=== PATIENT | female | born 1960 | race Two or more races ===

== ENCOUNTER 2022-09-29 10:00 | Outpatient (RCR) | payer MEDICAID, SELFPAY | END 2022-09-29 10:48 | disposition home or self-care (01) | LOC: HO.PT 10:00 | PROVIDERS: PCP Nurse Practitioner Family; Visit Provider Physician Assistant | DX: M54.2 Cervicalgia (principal) | CPT/HCPCS: 97110; 97140; 97162 ==

== ENCOUNTER 2023-03-09 13:01 | Outpatient (REF) | payer MEDICAID, SELFPAY ==
--- NOTE | ~2023-03-09 | US_ITS ---
EXAMINATION: US PELVIS CLINICAL INFORMATION: Postmenopausal bleeding. COMPARISON: None available. TECHNIQUE: Ultrasound of the pelvis is performed using both transabdominal and transvaginal transducers along with Doppler. Transvaginal imaging is performed due to inadequate visualization transabdominally. FINDINGS: The uterus is anteverted and measures 8.7 x 5.5 x 6.3 cm in dimension. There is a focal 1.8 cm hyperechoic lesion in the posterior uterine body suggestive of an intramural fibroid. The endometrium is thickened measuring 1.8 cm. There is a focal 1.0 x 1.3 x 1.6 cm hypoechoic lesion more suggestive of a polyp or submucosal fibroid. The cervix is normal. The ovaries are normal-appearing. The right ovary measures 3 x 1.5 x 2.1 cm. The left ovary is seen transabdominally only and measures 2.2 x 1.7 x 1.6 cm. There is no fluid in the pelvis. US/US pelvic and transvaginal IMPRESSION: Abnormally thickened endometrium measuring 1.8 cm. 1.0 x 1.3 x 1.6 cm hypoechoic endometrial lesion more suggestive of a polyp than submucosal fibroid. This could be better delineated with sonohysterogram or MRI if clinically indicated. Small posterior uterine body fibroid.
== END 2023-03-09 13:02 | disposition home or self-care (01) ==
LOC: HO.US 13:01
PROVIDERS: PCP Nurse Practitioner Family; Visit Provider Advanced Practice Midwife
DX: N95.0 Postmenopausal bleeding (principal)
CPT/HCPCS: 76830; 76856

== ENCOUNTER 2023-04-27 10:57 | Outpatient (AMB) | payer MEDICAID, SELFPAY ==
--- NOTE | 2023-04-27 10:59 | A.OFFVIS_ITS ---
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 Ultrasound was done showed the following: The uterus is anteverted and measures 8.7 x 5.5 x 6.3 cm in dimension. There is a focal 1.8 cm hyperechoic lesion in the posterior uterine body suggestive of an intramural fibroid. The endometrium is thickened measuring 1.8 cm. There is a focal 1.0 x 1.3 x 1.6 cm hypoechoic lesion more suggestive of a polyp or submucosal fibroid. The cervix is normal. The ovaries are normal-appearing. The right ovary measures 3 x 1.5 x 2.1 cm. The left ovary is seen transabdominally only and measures 2.2 x 1.7 x 1.6 cm. There is no fluid in the pelvis. [facility] Medical History HTN (hypertension) Surgical History History of tubal ligation Hx of cholecystectomy Family History Father HTN (hypertension) Mother HTN (hypertension) Brother Drug addict Social History Household Members Other:: Daughter Housing: Apartment Alcohol intake: never Patient Tobacco Use Status: Former Tobacco user Years Smoked: 8 service: No Current occupational status: unemployed Sexual orientation: Straight/Heterosexual Gender identity: Female Female Reproductive History Menstrual Date of last menstrual period: 08/14/20 Menopause type: natural Total pregnancies: 6 Full term: 6 Number of Living Children: 6 Review of Systems Card Reports as per HPI and Reports no additional complaints Resp Reports as per HPI and Reports no additional complaints GI Reports as per HPI and Reports no additional complaints Reports as per HPI Physical Exam Vital Signs: Last Vital Signs BP 124/80 04/27/23 11:01 BMI result Body Mass Index 42.6 Const General: cooperative, healthy appearing and comfortable Chest Chest palpation & inspection: normal inspection of the chest and normal palpation of entire chest wall Breast/axilla inspection: normal inspection of the breasts and normal inspection of the axillae Breast/axilla palpation: normal palpation of the breasts, normal palpation of the axillae and no axillary lymphadenopathy Resp Effort & Inspection: normal respiratory effort Auscultation: clear to auscultation bilaterally Percussion: percussion normal Cardio Palpation: normal PMI Rate: regular rate Rhythm: regular rhythm Heart sounds: no murmurs and no rubs Peripheral pulses: Peripheral pulses 2+ throughout GI Inspection: Yes normal to inspection Palpation (GI): Soft to palpation, nontender, no guarding, not rigid and No hepatosplenomegaly present Percussion: Yes normal to percussion Auscultation: normal bowel sounds Rectal Exam - Female: deferred Assessment & Plan Assessment & Plan (1) Postmenopausal bleeding: Comment: Abnormal thickened endometrium by ultrasound possible polyp versus submucosal myoma Code(s): N95.0 - Postmenopausal bleeding Plan: Discussed with the patient the differential diagnosis of post menopausal bleedin g with normal pelvic exam including but not limited to, endometrial hyperplasia, cancer, polyps and other causes; co testing done. Discussed with the patient the pelvic ultrasound findings, the endometrial stripe thickenss measured by ultrasound was more than 4mm. The negative predictive value, positive predictive value, Sensitivity, specificity of using ultrasound measurement of endometrial stripe to detecting endometrial pathology including hyperplasia , polyp or cancer were discussed with the patient. Recommended to the patient that the next step is an endometrial sampling via hysteroscopy D&C possible polypectomy versus endometrial biopsy to r/o endometrial pathology including hyperplasia or cancer. All the pros and cons risks and benefits of each approach were discussed with the patient, endometrial biopsy being less invasive, office procedure with less sensitivity and inability diagnose a polyp and removal versus hysteroscopy done under anesthesia more invasive more sensitive to endometrial cancer and possibility of diagnosing and endometrial polyp with the possibility of polypectomy. All questions were answered pt verbalized understanding and decided to proceed with hysteroscopy D&C possible polypectomy/myomectomy. Discussed with the patient the procedure , all benefits and risks including but not limited to inability to complete the procedure , bleeding, infection, possible need for blood transfusion with all its risk ( HIV,syphilis, Hepatitis, anaphylaxis shock, others..), injury to bladder, rectum, possible need for laparoscopy/laparotomy or hysterectomy. The patient verbalized understanding and signed the consent. Instructions given the patient to schedule a 2 week postoperative appointment Coding Level of Care Code New Pt Level 3 (05046) Diagnoses Postmenopausal bleeding N95.0
[2023-04-27 11:01] VITALS: BP 124/80; BMI 42.6
== END 2023-04-27 12:22 | disposition home or self-care (01) ==
LOC: HO.HWS 10:57
PROVIDERS: PCP Nurse Practitioner Family; Visit Provider Obstetrics & Gynecology
DX: N95.0 Postmenopausal bleeding (principal)
CPT/HCPCS: 99203

== ENCOUNTER 2023-04-27 10:57 | Outpatient (REF) | payer MEDICAID, SELFPAY ==
[2023-04-30 03:27] LABS: HPV mRNA E6/E7 rflx Not Detected (Not Detected)
== END 2023-04-27 10:58 | disposition home or self-care (01) ==
LOC: HO.LNP 10:57
PROVIDERS: PCP Nurse Practitioner Family; Visit Provider Obstetrics & Gynecology
DX: Z01.419 Encounter for gynecological examination (general) (routine) without abnormal findings (principal); N95.0 Postmenopausal bleeding
CPT/HCPCS: 87624; 88142; 99202

== ENCOUNTER 2023-05-04 07:10 | Day surgery (SDC) | payer MEDICAID, SELFPAY ==
--- NOTE | 2023-05-03 09:04 | HO.ANESPROP2 ---
Documented by User: Sera Gaytan NP 05/03/23 09:05 HPI - Anesthesia Eval Consult details Narrative: 62yo F for D&C Hysteroscopy,poss myomectomy,poss polypectomy PMFSH Active Problems Active Problems: All Active Problems (Updated 04/27/23 @ 11:35 by Castro Sow MD) Postmenopausal bleeding (Acute) Past Medical History Medical History HTN (hypertension) Family History Family History Father HTN (hypertension) Mother HTN (hypertension) Brother Drug addict Surgical History Surgical History (Updated 05/04/23 @ 07:24 by Lily Corea RN) History of tubal ligation Hx of cholecystectomy Hx of colonoscopy Social History Social History Household Members Other:: Daughter Housing: Apartment Alcohol intake: never Patient Tobacco Use Status: Former Tobacco user Quit Date: 10 yrs ago Years Smoked: 8 Use of substances other than those prescribed or required for medical reasons: No Are you DNR?: No Advance Directives: No Advance Directives Information Provided: Yes service: No Current occupational status: unemployed Sexual orientation: Straight/Heterosexual Gender identity: Female Meds Allergies Allergy/AdvReac Type Severity Reaction Status Date / Time No Known Allergies Allergy Verified 05/04/23 07:24 [No Known Allergies*] Home Medications Medication Instructions Recorded Confirmed Last Taken Type albuterol sulfate 90 mcg/actuation 2 puff inhalation Q4H PRN wheezing 04/27/23 05/04/23 Unknown History aerosol inhaler (Ventolin HFA) amlodipine 5 mg tablet 5 mg PO DAILY 04/27/23 05/04/23 Unknown History fluticasone propionate 50 2 spray intranasal DAILY PRN 04/27/23 05/04/23 Unknown History mcg/actuation nasal Allergy Symptoms spray,suspension loratadine 10 mg tablet 10 mg PO DAILY PRN allergies 04/27/23 05/04/23 Unknown History losartan 100 mg tablet 100 mg PO QAM 04/27/23 05/04/23 Unknown History Exam Exam Date and Time: May 03, 2023903 Assessment and Plan Assessment Anesthesia Assessment: Chart Reviewed Documented by User: Yasmani Shukla MD 05/04/23 08:42 PMFSH Past Medical History Medical History HTN (hypertension) Family History Family History Father HTN (hypertension) Mother HTN (hypertension) Brother Drug addict Family history of problems with anesthesia: No Surgical History Surgical History (Updated 05/04/23 @ 07:24 by Lily Corea RN) History of tubal ligation Hx of cholecystectomy Hx of colonoscopy History of Problems with Anesthesia: No Social History Social History Household Members Other:: Daughter Housing: Apartment Alcohol intake: never Patient Tobacco Use Status: Former Tobacco user Quit Date: 10 yrs ago Years Smoked: 8 Use of substances other than those prescribed or required for medical reasons: No Are you DNR?: No Advance Directives: No Advance Directives Information Provided: Yes service: No Current occupational status: unemployed Sexual orientation: Straight/Heterosexual Gender identity: Female Meds Allergies Allergy/AdvReac Type Severity Reaction Status Date / Time No Known Allergies Allergy Verified 05/04/23 07:24 [No Known Allergies*] Home Medications Medication Instructions Recorded Confirmed Last Taken Type albuterol sulfate 90 mcg/actuation 2 puff inhalation Q4H PRN wheezing 04/27/23 05/04/23 Unknown History aerosol inhaler (Ventolin HFA) amlodipine 5 mg tablet 5 mg PO DAILY 04/27/23 05/04/23 Unknown History fluticasone propionate 50 2 spray intranasal DAILY PRN 04/27/23 05/04/23 Unknown History mcg/actuation nasal Allergy Symptoms spray,suspension loratadine 10 mg tablet 10 mg PO DAILY PRN allergies 04/27/23 05/04/23 Unknown History losartan 100 mg tablet 100 mg PO QAM 04/27/23 05/04/23 Unknown History Exam Airway Mallampati Class: II TM Dist: >3cm Neck ROM: Full Heart: ok Lungs: ok Assessment and Plan Assessment Anesthesia Assessment: Anesthesia Plan Discussed Final Anesthetic Review Family History of Problems with Anesthesia: No History of Problems with Anesthesia: No NPO: Yes ASA Class: II Final Preanesthetic Review: No Changes in Pt Med Stat, Meds/Allgs Chart Reviewed, Consent Obtained/Reviewed and Anes Risks/Benef Reviewed Patient Risk: Intermediate Procedure Risk: Low Anesthetic Plan Anesthetic Plan: GA and Agree w/ Assess. and Plan Disposition: Standard PACU
[2023-05-04] VITALS (8 sets, daily range): BP systolic 83–153; BP diastolic 42–71; PULSE 42–71; RESP 14–18; TEMP 36.4–36.8; O2SAT 91–96; BMI 42.7
[2023-05-04] MEDS: Lactated Ringers 1,000 ML 100 ML IVCONT (08:02)
--- NOTE | 2023-05-04 09:20 | MHC.SHP ---
Pre-Procedural Eval Section A Date of Service: 05/04/23 The patient is an INPATIENT: No Changes since office visit: No Cold of Flu in the past 2 weeks, No New Medical Problems, No Changes in Medication and No Patient answered all questions The History & Physical has been completed within 30 days and I have reviewed it.: Yes Section B Chief Complaint: Postmenopausal bleeding Allergies: Allergies Allergy/AdvReac Type Severity Reaction Status Date / Time No Known Allergies Allergy Verified 05/04/23 07:24 [No Known Allergies*] Plan Diagnosis/Plan: Unchanged I have reviewed the history and physical and performed a pertinent physical examination on my patient. No changes have occurred unless specified. Time Spent With Patient Time: Total time managing care of this patient today ____ minutes.
--- NOTE | 2023-05-04 09:53 | PM.OP ---
Brief Operative Note Date of Service: 05/04/23 Pre-op diagnosis: Postmenopausal bleeding and endometrial polyp by ultrasound Post-op diagnosis: same (Two endometrial polyps and ? myoma) Procedure: Hysteroscopy D&C, Polypectomy and myomectomy Surgeon: Castro Sow MD Anesthesia: GLMA Was an Patient Financial Specialist used for this Procedure?: No Estimated blood loss (mL): 0 Pathology: other (Endometrial Scrapping. Polyps. Myoma) Condition: stable Disposition: PACU
--- NOTE | 2023-05-04 09:55 | P.OP_ITS ---
Operative Note Operative Note Date of Service: 05/04/23 Narrative: Preop Diagnosis: Postmenopausal bleeding and Endometrial polyp by US Operation: Diagnostic Hysteroscopy, Dilataion & Curettage , polypectomy and myomectomy Post Op Diagnosis: 2 Endometrial Polyps and myoma QBL: Minimal Anesthesia: GLMA Surgeon: Castro Sow MD Senior Product Integrity Engineer: None Complication: None Pathology: Endometrial Scrapings, Endometrial polyp Procedure: The patient was put in the dorsal lithotomy position, scrubbed, and draped in the usual manner. A sterile speculum was inserted in the patient's vagina. The anterior lip of the cervix was grasped with a single tooth tenaculum. The cervix was dilated up to 5 mm, then the scope was inserted in the patient's uterus. Inspection revealed 2 endometrial polyps and fundal myoma. The Myosure Reach device was used; it was introduced through the operative channel and polypectomy and myomectomy were done with no complications. The scope was then taken out from the uterine cavity, sharp curettings was carried on with minimal to moderate amount of tissues retrieved. At the end of the procedure, all instruments were taken out of the patient uterine and vaginal cavity. The single tooth tenaculum was removed and homeostasis was assured using pressure,. The patient tolerated the procedure well and was transferred to the PACU in a stable condition.
[2023-05-04] MEDS: Acetaminophen 325 MG TABLET 650 MG PO (10:18)
[2023-05-04] MEDS: oxyCODONE HCl Immed Release 5 MG TABLET PO (10:19)
[2023-05-04] MEDS: ondansetron HCL 4 MG/2 ML VIAL IVPUSH (10:28)
== END 2023-05-04 12:09 | disposition home or self-care (01) ==
PROVIDERS: Visit Provider Obstetrics & Gynecology
PROC: 0UDB8ZZ Extraction of Endometrium, Via Natural or Artificial Opening Endoscopic (ICD-10-PCS; CPT 58558; principal; 2023-05-04 09:20)
DX: N95.0 Postmenopausal bleeding (principal); N85.02 Endometrial intraepithelial neoplasia [EIN]; D25.9 Leiomyoma of uterus, unspecified; I10 Essential (primary) hypertension
CPT/HCPCS: 58558; 88305; J1885; J2405; J3010

== ENCOUNTER → 2023-05-04 07:10 | Outpatient (BNV) | payer MEDICAID, SELFPAY | PROVIDERS: Visit Provider Obstetrics & Gynecology | DX: N85.02 Endometrial intraepithelial neoplasia [EIN] (principal); N95.0 Postmenopausal bleeding | CPT/HCPCS: 58561 ==

== ENCOUNTER 2023-05-09 12:21 | Outpatient (AMB) | payer MEDICAID, SELFPAY ==
--- NOTE | 2023-05-09 12:24 | MHC.OFFVIS ---
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 The pathology showed the following: A.? Endometrial polyp, resection: -Fragments of endometrium consistent with polyp with foci of?atypical endometrial hyperplasia/endometrioid intraepithelial neoplasia.? -Polypoid fragments of benign endocervical mucosa.? -Benign smooth muscle fragments with Broad Top degeneration, suggesting submucosal leiomyoma (verses myometrium). B.? Endometrium, curettage: -Markedly fragmented endometrium with focal atypical glands.? -Fragments of benign squamous and endocervical glandular epithelium. [facility] Medical History HTN (hypertension) Surgical History History of tubal ligation Hx of cholecystectomy Hx of colonoscopy Family History Father HTN (hypertension) Mother HTN (hypertension) Brother Drug addict Social History Household Members Other:: Daughter Housing: Apartment Alcohol intake: never Patient Tobacco Use Status: Former Tobacco user Quit Date: 10 yrs ago Years Smoked: 8 service: No Current occupational status: unemployed Sexual orientation: Straight/Heterosexual Gender identity: Female Female Reproductive History Menstrual Date of last pap smear: 04/28/23 (pending) Review of Systems Const All systems reviewed & are unremarkable except as noted in HPI and below Reports as per HPI and Reports no additional complaints GI Reports no additional complaints Reports no additional complaints Assessment & Plan Assessment & Plan (1) EIN (endometrial intraepithelial neoplasia): Code(s): N85.02 - Endometrial intraepithelial neoplasia [EIN] Plan: Discussed with the patient the pathology of endometrial biopsy showing endometrial intraepithelial neoplasia, endometrial hyperplasia with atypia. Discussed with the patient the following: -If untreated the risk of progression of EIN to endometrial carcinoma is 83 percent, -Coexistent endometrial carcinoma may be present in up to 40 percent of patients with EH with atypia -Given the high risk of concurrent, or progression to, endometrial carcinoma, for most postmenopausal patients and premenopausal patients who have completed childbearing, hysterectomy for treatment of EH with atypia is the preferred treatment. -Other options of treatment discussed with the patient include Progestin therapy: Will refer the patient to [facility] medical office technologist Oncology . All questions answered, the patient verbalized understanding. Orders: Referrals Gynecologic Oncology Referral N85.02 - Endometrial intraepithelial neoplasia [EIN] Coding Level of Care Code Est Pt Level 3 (29821) Diagnoses EIN (endometrial intraepithelial neoplasia) N85.02
== END 2023-05-09 12:42 | disposition home or self-care (01) ==
LOC: HO.HWS 12:21
PROVIDERS: Visit Provider Obstetrics & Gynecology
DX: N85.02 Endometrial intraepithelial neoplasia [EIN] (principal)
CPT/HCPCS: 99213

== ENCOUNTER → 2023-05-09 12:21 | Outpatient (BNVA) | payer MEDICAID, SELFPAY | PROVIDERS: Visit Provider Obstetrics & Gynecology | DX: N85.02 Endometrial intraepithelial neoplasia [EIN] (principal) | CPT/HCPCS: 99212 ==

== ENCOUNTER 2023-08-04 15:30 | Outpatient (REF) | payer MEDICAID, SELFPAY ==
--- NOTE | 2023-08-04 15:33 | EMG_ITS ---
Chief complaint: Wakes up in the morning with hand numbness, right worse than left Reason for referral: Evaluate for Carpal Tunnel Syndrome Referred by: Margaux Mccarty CNP Procedure done: Bilateral upper extremities NCS/EMG Precautions and/or limitations: None The limb temperature was monitored continuously and remained between 32-36 degrees C during the performance of the NCS. Nerve Conduction Studies Anti Sensory Summary Table ?Stim Site NR Onset (ms) Norm Onset (ms) Peak (ms) Norm Peak (ms) O-P Amp (?V) Norm O-P Amp Site1 Site2 Delta-0 (ms) Dist (cm) Ferdinand (m/s) Norm Ferdinand (m/s) Left Median Anti Sensory (2nd Digit) Wrist ? 3.6 4.0 <3.6 14.8 >10 Wrist 2nd Digit 3.6 14.0 39 Right Median Anti Sensory (2nd Digit) Wrist NR <3.6 >10 Wrist 2nd Digit 14.0 Right Radial Anti Sensory (Thumb) Forearm ? 1.6 1.9 <3.1 29.2 Forearm Thumb 1.6 0.0 Left Ulnar Anti Sensory (5th Digit) Wrist ? 2.7 3.2 <3.7 25.7 >15.0 Wrist 5th Digit 2.7 14.0 52 Right Ulnar Anti Sensory (5th Digit) Wrist ? 2.3 3.1 <3.7 14.7 >15.0 Wrist 5th Digit 2.3 14.0 61 Motor Summary Table ?Stim Site NR Onset (ms) Norm Onset (ms) O-P Amp (mV) Norm O-P Amp iAmp (mV) Amp (1st) (%) Site1 Site2 Delta-0 (ms) Dist (cm) Ferdinand (m/s) Norm Ferdinand (m/s) Left Median Motor (Abd Poll Brev) Wrist ? 2.7 <3.9 9.3 >4.5 11.3 100.0 Elbow Wrist 5.0 19.5 39 >45 Elbow ? 7.7 7.8 9.2 83.9 Right Median Motor (Abd Poll Brev) Wrist ? 4.7 <3.9 5.9 >4.5 6.5 100.0 Elbow Wrist 3.8 20.0 53 >45 Elbow ? 8.5 4.3 4.9 72.9 Left Ulnar Motor (Abd Dig Minimi) Wrist ? 2.5 <3.0 6.6 >5 6.8 100.0 B Elbow Wrist 3.4 17.5 51 >45 B Elbow ? 5.9 5.8 6.4 87.9 A Elbow B Elbow 1.4 10.0 71 >45 A Elbow ? 7.3 5.7 6.2 86.4 Right Ulnar Motor (Abd Dig Minimi) Wrist ? 2.3 <3.0 6.8 >5 8.4 100.0 B Elbow Wrist 3.5 18.0 51 >45 B Elbow ? 5.8 6.6 8.2 97.1 A Elbow B Elbow 1.2 10.0 83 >45 A Elbow ? 7.0 3.3 4.0 48.5 EMG ?Side Muscle Nerve Root Ins Act Fibs Psw Amp Dur Poly Recrt Int Pat Comment Right 1stDorInt Ulnar C8-T1 Nml Nml Nml Nml Nml 0 Nml Complete Right FlexCarRad Median C6-7 Nml Nml Nml Nml Nml 0 Nml Complete Right Biceps Musculocut C5-6 Nml Nml Nml Nml Nml 0 Nml Complete Right Triceps Radial C6-7-8 Nml Nml Nml Nml Nml 0 Nml Complete Right Deltoid Axillary C5-6 Nml Nml Nml Nml Nml 0 Nml Complete Left 1stDorInt Ulnar C8-T1 Nml Nml Nml Nml Nml 0 Nml Complete Left FlexCarRad Median C6-7 Nml Nml Nml Nml Nml 0 Nml Complete Left Biceps Musculocut C5-6 Nml Nml Nml Nml Nml 0 Nml Complete Left Triceps Radial C6-7-8 Nml Nml Nml Nml Nml 0 Nml Complete Left Deltoid Axillary C5-6 Nml Nml Nml Nml Nml 0 Nml Complete FINDINGS: Right median motor nerve showed prolonged distal latency, normal amplitude and normal conduction velocity. Right ulnar motor nerve showed normal distal latency, drop in amplitude above elbow and normal conduction velocity. Right median sensory nerve showed no response. Right ulnar sensory nerve showed mildly reduced amplitude. Left median motor nerve showed prolonged distal latency, normal amplitude and slow conduction velocity. Left median sensory nerve showed prolonged peak latency. All other nerves tested were within normal. Concentric needle EMG was performed in selected muscles of the bilateral upper extremities. Study did not reveal signs of electric abnormalities as shown in the table below. IMPRESSION: 1. This is an abnormal study. 2. There is electrodiagnostic evidence for bilateral moderate-severe median neuropathy at the wrist, consistent with carpal tunnel syndrome. 3. 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 4. There is no electrodiagnostic evidence for ulnar neuropathy, brachial plexopathy, or cervical radiculopathy. Thank you for your kind referral. Kassandra Campo MD, LUIS CARLOS Board Certified, [place] Board of Physical Medicine and Rehabilitation (ABPMR) Board Certified, [place] Board of Electrodiagnostic Medicine (ABEM) CODIN 40476 x2 MTDD
== END 2023-08-04 15:31 | disposition home or self-care (01) ==
LOC: HO.NEURO 15:30
PROVIDERS: Visit Provider Nurse Practitioner Family
DX: G56.03 Carpal tunnel syndrome, bilateral upper limbs (principal)
CPT/HCPCS: 95886; 95911

== ENCOUNTER → 2023-08-04 15:33 | Outpatient (BNV) | payer MEDICAID, SELFPAY | PROVIDERS: Visit Provider Physical Medicine & Rehabilitation | DX: G56.13 Other lesions of median nerve, bilateral upper limbs (principal); G56.03 Carpal tunnel syndrome, bilateral upper limbs; G56.21 Lesion of ulnar nerve, right upper limb | CPT/HCPCS: 95886; 95911 ==

== ENCOUNTER 2023-08-26 14:15 | Outpatient (REF) | payer MEDICAID, SELFPAY ==
--- NOTE | ~2023-08-26 | MM_ITS ---
EXAMINATION: MM SCREENING DIGITAL BREAST TOMOSYNTHESIS, BILATERAL CLINICAL INFORMATION: Screening. Asymptomatic. COMPARISON: Mammography: This study is compared with prior exams dating back to 2021. TECHNIQUE: Digital breast tomosynthesis is performed in both the craniocaudal and mediolateral oblique views along with computer-aided detection (CAD). Synthesized 2D images are generated from the tomosynthesis. FINDINGS: The breasts are almost entirely fatty (ACR BI-RADS breast composition Category a). There are no significant masses, abnormal calcifications, or other abnormalities. MM/MM tomosynthesis screening BI IMPRESSION: No mammographic evidence of malignancy. ASSESSMENT: BI-RADS BI-RADS 1 - Negative RECOMMENDATION: Routine annual mammography screening. 1 year F/U This examination should not preclude the clinical evaluation of a suspicious palpable abnormality. This patient's information was entered into a reminder system with a target due date for their next mammogram.
== END 2023-08-26 14:16 | disposition home or self-care (01) ==
LOC: HO.MAMMO 14:15
PROVIDERS: PCP Nurse Practitioner Family; Visit Provider Nurse Practitioner Family
DX: Z12.31 Encounter for screening mammogram for malignant neoplasm of breast (principal)
CPT/HCPCS: 77063; 77067

== ENCOUNTER → 2023-08-26 14:15 | Outpatient (BNV) | payer MEDICAID, SELFPAY | PROVIDERS: PCP Nurse Practitioner Family; Visit Provider Radiology Diagnostic Radiology | DX: Z12.31 Encounter for screening mammogram for malignant neoplasm of breast (principal) | CPT/HCPCS: 77063; 77067 ==

== ENCOUNTER 2023-09-11 17:18 | Emergency (ER) | payer MEDICAID, SELFPAY ==
--- NOTE | ~2023-09-11 | XR_ITS ---
EXAMINATION: XR CHEST CLINICAL INFORMATION: Shortness of breath. Cough. COMPARISON: None available. TECHNIQUE: 2 views of the chest were obtained. FINDINGS: No significant abnormality is noted involving the heart, mediastinum, bony thorax or soft tissues. Mild prominent bronchovascular markings likely represent chronic changes. No definite focal airspace opacity to suspect pneumonia. XR/XR chest 2V IMPRESSION: No radiographic evidence of pneumonia or acute pulmonary disease.
[2023-09-11 17:39] VITALS: BP 155/64; PULSE 81; RESP 20; TEMP 36.6; O2SAT 97; BMI 38.6
--- NOTE | 2023-09-11 17:39 | ED.URI ---
HPI - URI/Sore Throat General Chief Complaint: Upper Respiratory Symptoms Stated Complaint: body aches,congested cough Time Seen by Provider: 09/11/23 17:43 Source: RN notes reviewed and old records reviewed History of Present Illness HPI Narrative: 62 year old female with PMHx HTN presenting to the ED c/o subjective fever, chills, congestion, rhinorrhea, right ear itching, dry cough and SOB x yesterday. Admits to chest pain w/coughing. +sick contacts. denies recent travel, LE edema, sore throat, abdominal pain, N/V. MD elicited complaint: fever, cough, rhinorrhea and nasal congestion Related Data Home Medications Medication Instructions Recorded Confirmed albuterol sulfate 90 mcg/actuation 2 puff inhalation Q4H PRN wheezing 04/27/23 05/04/23 aerosol inhaler (Ventolin HFA) amlodipine 5 mg tablet 5 mg PO DAILY 04/27/23 05/04/23 fluticasone propionate 50 2 spray intranasal DAILY PRN 04/27/23 05/04/23 mcg/actuation nasal Allergy Symptoms spray,suspension loratadine 10 mg tablet 10 mg PO DAILY PRN allergies 04/27/23 05/04/23 losartan 100 mg tablet 100 mg PO QAM 04/27/23 05/04/23 Previous Rx's Medication Instructions Recorded benzonatate 100 mg capsule 100 mg PO TID PRN cough #14 caps 09/11/23 fluticasone propionate 50 2 spray intranasal DAILY #16 grams 09/11/23 mcg/actuation nasal spray,suspension (Flonase Allergy Relief) Allergies Allergy/AdvReac Type Severity Reaction Status Date / Time No Known Allergies Allergy Verified 09/11/23 17:39 [No Known Allergies*] Review of Systems Review of Systems: Constitutional: +subj Fever, + Chills ENT/Mouth: + Ear Pain, + Nasal Congestion, No Sinus Pain, No Hoarseness, No sore throat, + Rhinorrhea, No Swallowing Difficulty Cardiovascular: + Chest Pain w/cough, + SOB Respiratory: + Cough, No Sputum, No Wheezing Gastrointestinal: No Nausea, No Vomiting, No Abdominal pain Musculoskeletal: No joint pain, + Myalgias, No Joint Swelling Skin: No Skin Lesions, No rash Neuro: No Weakness Yes all other systems are reviewed and are negative Constitutional: Constitutional: Reports as per [facility] Past Medical History Attestation statement: The following information was validated with the patient. Source: old records reviewed Medical History HTN (hypertension) Surgical History Hx of colonoscopy Hx of cholecystectomy History of tubal ligation Family History Family History Father HTN (hypertension) Mother HTN (hypertension) Brother Drug addict Social History Household Members Other:: Daughter Housing: Apartment Alcohol intake: never Patient Tobacco Use Status: Former Tobacco user Quit Date: 10 yrs ago Years Smoked: 8 Advance Directives: No Advance Directives Information Provided: No service: No Current occupational status: unemployed Sexual orientation: Straight/Heterosexual Gender identity: Female Physical Exam Vital Signs: Vital Signs: Last Vital Signs Temp 97.9 F 09/11/23 17:39 Pulse 85 09/11/23 18:02 Resp 17 09/11/23 18:02 BP 155/64 H 09/11/23 17:39 Pulse Ox 97 09/11/23 17:39 O2 Del Method Room Air 09/11/23 17:39 BMI result Body Mass Index 38.6 Const: General: cooperative, healthy appearing and no acute distress Orientation/consciousness: patient oriented x3 Limitations: no limitations HEENT: Head: Yes normal to inspection and Yes atraumatic Ears: hearing grossly normal bilaterally, external ears normal, TM's normal bilaterally and mastoids normal General nose exam: Normal external nose present Face and sinus: Yes normal facial exam Mouth: Normal oral and palatal mucosa present, no audible dysphonia and no drooling Throat: Yes posterior oropharynx normal, Yes tonsils normal, Yes uvula midline, No peritonsillar mass, No uvula laterally displaced and No uvular edema Eyes: General: appearance normal, both eyes and all related structures EOM: EOMs intact bilaterally Neck: Neck: Yes normal visual inspection and Yes no meningeal signs Resp: Effort & Inspection: normal respiratory effort, no respiratory distress and not tachypneic Auscultation: clear to auscultation bilaterally, no crackles, no rhonchi and no wheezes Cardio: Rate: regular rate Heart sounds: S1 normal heart sound present and S2 normal heart sound present Skin: Rashes: no rashes Wounds: no wounds Neuro: General: patient oriented x3, tone normal and no meningeal signs Cranial nerves: Yes CN's II-XII intact bilaterally Gait exam (Neuro): Normal gait present Extrem: General: Yes normal to inspection Course Course Course Narrative: -COVID, flu, rapid strep negative 1923-- XR chest 2V IMPRESSION: No radiographic evidence of pneumonia or acute pulmonary disease. Results discussed with patient including worrisome signs and symptoms and strict return precautions, and when to return to the emergency department. They verbalized understanding and feel safe for discharge at this time. Medications Administered Discontinued Medications Generic Name Dose Route Start Last Admin Trade Name Freq PRN Reason Stop Dose Admin Albuterol Sulfate 4 puff 09/11/23 17:43 09/11/23 18:01 Albuterol Sulfate 90 Mcg 8 Gm Inhaler INHALE 09/11/23 17:44 4 puff ONCE ONE Administration Medical Decision Making Medical Decision Making MDM Narrative: 62 year old female with PMHx HTN presenting to the ED c/o subjective fever, chills, congestion, rhinorrhea, right ear itching, dry cough and SOB x yesterday. Admits to chest pain w/coughing. On exam VSS, NAD, nontoxic appearing, lungs CTA, oropharynx and TMs WNL. Concern for viral illness vs pneumonia/bronchitis. No evidence of otitis media/externa or strep pharyngitis. No evidence of [employer]ATOR or retropharyngeal abscess Plan: Viral testing, rapid strep from a CXR, albuterol neb inhaler Please refer to course for remaining clinical decision making, interpretation of labs/imaging results, and discussions with consultants and/or family members. Differential Diagnosis Differential Diagnoses: The differential diagnosis associated with the presentation includes As above Lab Data MDM Lab Attestation statement: I reviewed the patient's lab results. Labs: Lab Results 09/11/23 Range/Units 18:05 COVID-19 (JOHAN) Negative (Negative) COVID-19 Clin Com See Note Influenza Type A (EWA) Negative (Negative) Influenza Type B (EWA) Negative (Negative) Influenza A & B Note See Note S. pyogenes GrpA EWA Negative (Negative) Independent Interpretation I performed an independent interpretation of an: Plain X-Ray Radiology Impression Discussion of test interpretation with radiology: I have reviewed the radiologist's reading. External Record Review External record reviewed: Inpatient record, Office record, Outpatient record, Prior outpatient labs, Prior outpatient radiology, Primary care record and Outside ED record Tests considered The following testing was considered but not selected: As above Prescription Management I considered prescription management with: Antibiotic Chronic Conditions Patient?s care impacted by: Hypertension Discharge Plan Discharge Clinical Impression: Upper respiratory infection Patient Disposition: Home, Self-Care Instructions: Upper Respiratory Infection (DC) Additional Instructions: You tested negative for COVID, flu, and strep throat Tessalon Perles for cough, take as needed Flonase is a nasal decongestant Follow-up with your doctor Stay hydrated Rest If symptoms persist or worsen return to the ED Prescriptions: New benzonatate 100 mg capsule 100 mg PO TID PRN (Reason: cough) Qty: 14 0RF fluticasone propionate [Flonase Allergy Relief] 50 mcg/actuation spray,suspension 2 spray intranasal DAILY Qty: 16 0RF Rx Instructions: administer into each nostril No Action loratadine 10 mg tablet 10 mg PO DAILY PRN (Reason: allergies) fluticasone propionate 50 mcg/actuation spray,suspension 2 spray intranasal DAILY PRN (Reason: Allergy Symptoms) losartan 100 mg tablet 100 mg PO QAM albuterol sulfate [Ventolin HFA] 90 mcg/actuation HFA aerosol inhaler 2 puff inhalation Q4H PRN (Reason: wheezing) amlodipine 5 mg tablet 5 mg PO DAILY Referrals: [facility] [Primary Care Provider] -
[2023-09-11] MEDS: Albuterol Sulfate 90 MCG 8 GM INHALER 4 PUFF INHALE (18:01)
--- NOTE | 2023-09-11 18:01 | PC.NURSE ---
RT bedside assessing pt at this time. pt receiving nebulizer treatment.
[2023-09-11 18:02] VITALS: PULSE 85; RESP 17; O2SAT 98
[2023-09-11 18:24] LABS: IDNOW Serial# 6674DD1D; Strep A Nucleic Acid Negative (Negative)
[2023-09-11 18:26] LABS: COVID-19 Test Negative (Negative); IDNOW Serial# 08D9AD1C
[2023-09-11 18:29] LABS: IDNOW Serial# 58CA691E; Influenza A Negative (Negative); Influenza B2 Negative (Negative)
[2023-09-11 19:42] VITALS: O2SAT 97
== END 2023-09-11 19:44 | disposition home or self-care (01) ==
PROVIDERS: Physician Assistant; Emergency Provider Internal Medicine
DX: J06.9 Acute upper respiratory infection, unspecified (principal); M79.10 Myalgia, unspecified site; R05.9 Cough, unspecified; R50.9 Fever, unspecified; J34.89 Other specified disorders of nose and nasal sinuses; R07.89 Other chest pain; R09.81 Nasal congestion; Z11.52 Encounter for screening for COVID-19; Z20.822 Contact with and (suspected) exposure to COVID-19; Z87.891 Personal history of nicotine dependence; Z79.899 Other long term (current) drug therapy
CPT/HCPCS: 71046; 87502; 87635; 87651; 99284; 99285

== ENCOUNTER → 2023-12-07 11:26 | Outpatient (BNVA) | payer MEDICAID, SELFPAY | PROVIDERS: Visit Provider Physical Medicine & Rehabilitation ==

== ENCOUNTER → 2023-12-07 11:26 | Outpatient (BNVA) | payer MEDICAID, SELFPAY | PROVIDERS: Visit Provider Physical Medicine & Rehabilitation ==

== ENCOUNTER 2024-01-11 08:25 | Outpatient (REF) | payer MEDICAID, SELFPAY ==
--- NOTE | ~2024-01-11 | XR_ITS ---
EXAMINATION: XR FOOT, LEFT CLINICAL INFORMATION: Pain with ambulation COMPARISON: None available. TECHNIQUE: AP, lateral, and oblique views of the left foot. FINDINGS: The bones are intact. No fracture. Alignment is anatomic. Joint spaces are maintained. Large Achilles enthesophyte. Tiny posterior plantar calcaneal spur. XR/XR foot LT min 3V IMPRESSION: 1. No acute bony abnormality. 2. Large Achilles enthesophyte.
[2024-01-11 12:06] LABS: Alanine Aminotransferase 29 U/L (0-31); Albumin Level 3.7 g/dL (3.5-5.0); Alkaline Phosphatase 95 U/L (39-117); Anion Gap 10 (12-20); Aspartate Amino Transferase 20 U/L (5-31); Bilirubin Total 0.6 mg/dL (0.0-1.0); Blood Urea Nitrogen 16 mg/dL (9-16); Calcium 9.2 mg/dL (8.4-10.2); Carbon Dioxide 28 mmol/L (22-29); Chloride 106 mmol/L (96-108); Cholesterol 140 mg/dL (<200); Estimated Glomerular Filt Rate > 60; Glucose Random 127 mg/dL (60-115); HDL Cholesterol 37 mg/dL (>40); LDL Cholesterol Calculated 83 mg/dL (<100); Potassium 4.1 mmol/L (3.3-5.1); Sodium 140 mmol/L (135-145); Total Protein 7.5 g/dL (6.5-8.0); Triglycerides 102 mg/dL (<150)
[2024-01-12 07:14] LABS: ~HepC Num1 0.16 S/CO (0.00-0.79); ~Hepatitis C Antibody Nonreactive (Nonreactive)
== END 2024-01-11 08:26 | disposition home or self-care (01) ==
LOC: HO.HHCL 08:25
PROVIDERS: Visit Provider Nurse Practitioner Family
DX: Z00.00 Encounter for general adult medical examination without abnormal findings (principal); R73.03 Prediabetes; M79.672 Pain in left foot
CPT/HCPCS: 36415; 73630; 80053; 80061; 86803

== ENCOUNTER 2024-02-15 08:07 | Outpatient (AMB) | payer MEDICAID, SELFPAY ==
--- NOTE | 2024-02-15 08:30 | A.OFFVIS_ITS ---
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 State she is having numbness and tingling for about 1 year and has worsen in the last 2 months States her right is worse than her left . EMG done. Also states her ring finger is locking every morning. Patient would like to discuss surgery. 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 She complains of numbness in the thumb, index, and middle fingers of her bilateral hands, R>L. Symptoms intermittent, but daily, worse at night. She says her numbness has been present for ~1 year but worsened in the last two months. She says she has some numbness in her right small finger, but this is only occasionally. She says her numbness is worst in the morning when she wakes up She also complains of painful locking of her right ring finger. [facility] Medical History HTN (hypertension) Surgical History Hx of colonoscopy Hx of cholecystectomy History of tubal ligation Family History Father HTN (hypertension) Mother HTN (hypertension) Brother Drug addict Social History (Updated 02/15/24 @ 08:39 by JUAN Butler) Household Members Other:: Daughter Housing: Apartment Alcohol intake: never Patient Tobacco Use Status: Former Tobacco user Quit Date: 10 yrs ago Years Smoked: 8 service: No Current occupational status: unemployed and disabled Current occupation: left hand Sexual orientation: Straight/Heterosexual Gender identity: Female Review of Systems Const All systems reviewed & are unremarkable except as noted in HPI and below Physical Exam Vital Signs: BMI result Body Mass Index 38.6 Const General: cooperative, healthy appearing and no acute distress Orientation/consciousness: patient oriented x3 HEENT Head: Yes normocephalic and Yes atraumatic Eyes EOM: EOMs intact bilaterally Resp Effort & Inspection: normal respiratory effort and able to speak in complete sentences Cardio Jugular venous distension: no JVD Skin General skin exam: turgor normal Rashes: no rashes Neuro General: patient oriented x3 Extrem Other: Evaluation of Bilateral Upper Extremity: The patient is alert, oriented, and in no acute distress Neuro: Median, Ulnar, Radial nerves motor and sensory intact and sensation is normal to the tips of all digits No thenar or intrinsic wasting Good APB muscle belly firing and good finger cross Vascular: Cap refill brisk ROM: She can make a fist and extend all her digits Visible and palpable locking and catching of the right ring finger Skin: No lacerations or abrasions. General: No Ecchymosis. No Erythema or evidence of infection. Nerve Conduction Study: IMPRESSION: 1. This is an abnormal study. 2. There is electrodiagnostic evidence for bilateral moderate-severe median neuropathy at the wrist, consistent with carpal tunnel syndrome. 3. 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 4. There is no electrodiagnostic evidence for ulnar neuropathy, brachial plexopathy, or cervical radiculopathy. Kassandra Campo MD, LUIS CARLOS 08/04/23 Psych Appearance: grossly normal Affect: normal affect Attitude: cooperative Assessment & Plan Assessment & Plan (1) Carpal tunnel syndrome of right wrist: Code(s): G56.01 - Carpal tunnel syndrome, right upper limb Category: Medical (2) Cubital tunnel syndrome on right: Code(s): G56.21 - Lesion of ulnar nerve, right upper limb Category: Medical (3) Carpal tunnel syndrome of left wrist: Code(s): G56.02 - Carpal tunnel syndrome, left upper limb Category: Medical (4) Trigger ring finger of right hand: Code(s): M65.341 - Trigger finger, right ring finger Category: Medical Plan Assessment & Plan: 1. Right carpal tunnel syndrome, moderate-severe Symptoms intermittent, but daily, worse at night 2. Right ring finger trigger finger I educated her about this condition I discussed operative and non-operative treatment options The patient would like to proceed with surgery, beginning with her right side The risks and benefits of operative treatment were discussed with the patient and the patient wishes to proceed with surgery. These risks include, but are not limited to risk of damage to blood vessels, nerves, tendons, infection, recurrence, incomplete relief of preoperative symptoms, persistent pain, possible need for further surgery and the risks associated with regional blocks and anesthesia. The plan is to take the patient to the operating room sometime in the next few weeks for the following procedures: 1. Right carpal tunnel release, under local 2. Right ring finger trigger release, under local All of the preoperative paperwork including the consent was reviewed today. All the patient's questions were answered. The patient understands that they will be contacted by our dental scheduler soon to schedule this procedure She denies Diabetes, blood thinners, asthma, heart, lung, kidney issues 3. Left carpal tunnel syndrome, moderate-severe Symptoms intermittent, but daily, worse at night She will follow up to discuss treatment when her right hand has recovered 4. Right cubital tunnel syndrome Symptoms intermittent & occasional I educated her about this condition If her symptoms increase in frequency or severity she can follow up to discuss surgery Scribed for Richa Landa MD by Stuart Masterson, site medical director, on 02/15/24 at 8:45 AM, EST. Coding Level of Care Code New Pt Level 4 (32604) Diagnoses Carpal tunnel syndrome of right wrist G56.01 Cubital tunnel syndrome on right G56.21 Carpal tunnel syndrome of left wrist G56.02 Trigger ring finger of right hand M65.341
[2024-02-15 08:39] VITALS: BMI 38.6
== END 2024-02-15 08:52 | disposition home or self-care (01) ==
PROVIDERS: Referring Provider Nurse Practitioner Family; Visit Provider Orthopaedic Surgery
DX: G56.03 Carpal tunnel syndrome, bilateral upper limbs (principal); G56.21 Lesion of ulnar nerve, right upper limb; M65.341 Trigger finger, right ring finger
CPT/HCPCS: 99204

== ENCOUNTER → 2024-02-15 08:07 | Outpatient (BNVA) | payer MEDICAID, SELFPAY | PROVIDERS: Visit Provider Orthopaedic Surgery | DX: G56.03 Carpal tunnel syndrome, bilateral upper limbs (principal); G56.21 Lesion of ulnar nerve, right upper limb; M65.341 Trigger finger, right ring finger | CPT/HCPCS: 99202 ==

== ENCOUNTER 2024-02-20 09:54 | Day surgery (SDC) | payer MEDICAID, SELFPAY ==
--- NOTE | 2024-02-20 07:57 | W.PM.OPN ---
Operative Note Operative Note Date of Service: 02/20/24 Narrative: Preop diagnosis: 1. Right Carpal tunnel syndrome 2. Right ring finger trigger finger Postop diagnosis: same Procedure: 1. Right Carpal tunnel release 2. Right ring finger trigger release Surgeon: Richa Landa MD Anesthesia: local block using 1% lidocaine with epinephrine Findings: Thickened transverse carpal ligament. EBL: Less than 5 mL Specimens: None Complications: None Disposition: Brought to recovery room in stable condition Plan: Follow-up for 10-14 days for wound check and suture removal Indications: The patient is 63 years old, with right carpal tunnel syndrome and a right ring finger trigger finger that have been unresponsive to nonoperative management. The risks and benefits of operative treatment including but not limited to risk of damage to blood vessels, nerves, tendons, infection, persistent pain, persistent symptoms, or possible need for additional surgery were discussed with the patient and the patient wishes to proceed with surgery. Procedure: Once consent was obtained a local block was performed using a combination of 1% lidocaine with epinephrine. The patient was then brought back to the operating suite and placed on the operative table in supine position. The right upper extremity was prepped and draped in a standard surgical fashion. Once assured that we had a good block, a 1.5 cm oblique incision was made centered over the A1 sony of the right ring finger . The incision was made through the skin to the subcutaneous tissues using a #15 blade. Careful dissection was made down to the level of the A1 sony using tenotomy scissors, with care being taken to protect the nearby neurovascular structures. A longitudinal incision was made in the A1 sony 1st using a #15 blade, then using tenotomy scissors under direct visualization. The A1 sony was noted to be thickened. Following our A1 sony release, we no longer saw any locking or catching of the digit with flexion and extension. Once assured that we had a good block, a 2.0 cm longitudinal incision was made centered over the carpal tunnel. The incision was made through the skin to the subcutaneous tissues using a #15 blade. Dissection was made down to the level of the transverse carpal ligament with care being taken to protect the palmar cutaneous nerve. Once the transverse carpal ligament was clearly visualized, a longitudinal incision was made in the transverse carpal ligament 1st using a #15 blade, then using tenotomy scissors under direct visualization. Care was taken to look for and protect the motor branch of the median nerve when seen in this area. Once satisfied with our carpal tunnel release the wound was copiously irrigated with normal saline and hemostasis was obtained with a brief period of local pressure. The skin edges were reapproximated with some 5.0 nylon suture material and a sterile dressing was applied. The patient appears to have tolerated the procedure well and with no complications. All digits were well vascularized at the conclusion of the case.
--- NOTE | 2024-02-20 07:58 | MHC.SHP ---
Pre-Procedural Eval Section A - 24 Hr Update-Section A only Date of Service: 02/20/24 The patient is an INPATIENT: No Changes since office visit: No Cold of Flu in the past 2 weeks, No New Medical Problems, No Changes in Medication and No Patient answered all questions The patient has been examined within 24 hours of the surgical procedure. The History & Physical has been completed within 30 days and I have reviewed it.: Yes Section B - Complete if H&P > 30 days Chief Complaint: Carpal tunnel syndrome, right upper limb Allergies: Allergies Allergy/AdvReac Type Severity Reaction Status Date / Time No Known Allergies Allergy Verified 02/15/24 08:38 [No Known Allergies*] Exam Exam Comment: Right carpal tunnel syndrome and a right ring finger trigger finger Plan Diagnosis/Plan: Unchanged I have reviewed the history and physical and performed a pertinent physical examination on my patient. No changes have occurred unless specified. Time Spent With Patient Time: Total time managing care of this patient today ____ minutes.
[2024-02-20 12:37] VITALS: BMI 40.8
[2024-02-20 14:40] VITALS: BP 149/64; PULSE 73; RESP 18; O2SAT 99
== END 2024-02-20 15:45 | disposition home or self-care (01) ==
PROVIDERS: PCP Nurse Practitioner Family; Visit Provider Orthopaedic Surgery
PROC: (CPT 64721; principal; 2024-02-20 12:00)
PROC: (CPT 26055; 2024-02-20 12:00)
DX: G56.01 Carpal tunnel syndrome, right upper limb (principal); M65.341 Trigger finger, right ring finger; R20.0 Anesthesia of skin; R20.2 Paresthesia of skin; I10 Essential (primary) hypertension; Z87.891 Personal history of nicotine dependence; Z56.0 Unemployment, unspecified
CPT/HCPCS: 64721; 26055; J0171

== ENCOUNTER → 2024-02-20 09:54 | Outpatient (BNV) | payer MEDICAID, SELFPAY | PROVIDERS: PCP Nurse Practitioner Family; Visit Provider Orthopaedic Surgery | DX: M65.341 Trigger finger, right ring finger (principal); G56.01 Carpal tunnel syndrome, right upper limb | CPT/HCPCS: 26055; 64721 ==

== ENCOUNTER 2024-03-01 14:14 | Outpatient (AMB) | payer MEDICAID, SELFPAY ==
--- NOTE | 2024-03-01 14:18 | A.OFFVIS_ITS ---
Intake Visit Reasons: [facility] referral for VV w/ pain Intake Note: New patient presents for varicose veins. States she only has one on her right leg. It is not painful but it is big so it concerns her. Accompanied by: Self / Same As Patient Allergies No Known Allergies [No Known Allergies*] Allergy (Verified 03/01/24 14:19) HPI [facility] [place] referral for VV w/ pain: Details: Very pleasant 63-year-old female patient presents for painful varicose veins. Complaints include pain over varicosities, swelling of lower extremities, cramping, fatigue, and heaviness of the lower extremities. 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 It is noted more so in right leg. She does have some la rge varicosities which are painful on her right calf. In addition she most recently underwent right carpal tunnel release. Patient denies any previous venous surgery or injections. Patient denies any history of DVT/ PE. Patient denies any history of phlebitis. Trial of compression includes - [id number] They now present for vascular evaluation regarding their varicose veins. [facility] Medical History HTN (hypertension) Surgical History H/O: hysterectomy Hx of colonoscopy Hx of cholecystectomy History of tubal ligation Family History Father HTN (hypertension) Mother HTN (hypertension) Brother Drug addict Social History Household Members Other:: Daughter Housing: Apartment Alcohol intake: never Comment: counts correct Patient Tobacco Use Status: Former Tobacco user Quit Date: 10 yrs ago Years Smoked: 8 service: No Current occupational status: unemployed and disabled Current occupation: left hand Sexual orientation: Straight/Heterosexual Gender identity: Female Review of Systems Const Reports as per HPI ENT Reports no additional complaints Card Denies chest pain, Denies chest pain at rest and Denies chest pain with activity Resp Denies chest congestion and Denies cough GI Reports no additional complaints Musc Details: pain over varicosities, aching of lower extremities, swelling, cramping, heaviness and tiredness, itching Denies abnormal gait Skin/Breast Reports pruritus and Denies wounds Neuro Reports no additional complaints and Denies abnormal gait Psych Denies no additional complaints Physical Exam Const General: cooperative, healthy appearing and comfortable Orientation/consciousness: oriented to person, oriented to place and oriented to time Neck Carotids: no bruits Chest Chest palpation & inspection: normal inspection of the chest and normal palpation of entire chest wall Resp Effort & Inspection: normal respiratory effort and able to speak in complete sentences Cardio Rate: regular rate Heart sounds: S1 normal heart sound present and S2 normal heart sound present Peripheral pulses: Peripheral pulses 2+ throughout GI Inspection: Yes normal to inspection Skin Other: +2 edema, large rope-like varicosities greater than 4 mm right calf CEAP Classification C4 - skin color changes Ep - Etiology Primary As - superficial veins P - reflux General skin exam: dry skin Neuro General: oriented to person, oriented to place and oriented to time Extrem Right lower extremity: full ROM, normal capillary refill and edema Left lower extremity: full ROM, normal capillary refill and edema Psych Mental Status: mental status grossly normal Assessment & Plan Assessment & Plan (1) Varicose veins of right lower extremity with inflammation: Code(s): I83.11 - Varicose veins of right lower extremity with inflammation Category: Medical Plan: In short, the patient has evidence of venous insufficiency. I have discussed the pathophysiology with the patient. In addition I have provided informational material regarding venous disease to the patient. We have discussed conservative measures including compression, elevation, and exercise. I have also provided a handout regarding appropriate use of compression stockings and where to purchase good compression stockings as well. I have taken the liberty of ordering venous insufficiency testing with the patient. They will follow up with me after testing. The patient had an opportunity to ask questions regarding the treatment plan. All questions were answered. Imaging studies, laboratory studies and physical exam results were discussed and reviewed in detail. No major barriers to understanding were identified. The patient expressed understanding and agreement with the above treatment plan. The patient is aware they should contact our office by phone for worsening of the current condition or the appearance of new symptoms. Thank you for allowing me to participate in the vascular care of this patient. If you have any questions or concerns regarding the treatment for the above condition please do not hesitate to contact me. The office telephone contact is [phone]. This note is constructed using voice recognition software. While every effort has been made to ensure accuracy, aviation electronics technician errors may have been included. Thank you for allowing me to participate in the care of your patient. Yours sincerely, Mukund Willis MD, FACS, R.P.V.I. Orders: Orders US venous duplex LE BI 1 Week I83.11 - Varicose veins of right lower extremity with inflammation Coding Level of Care Code New Pt Level 4 (82008) Diagnoses Varicose veins of right lower extremity with inflammation I83.11
== END 2024-03-01 14:28 | disposition home or self-care (01) ==
PROVIDERS: Referring Provider Nurse Practitioner Family; Visit Provider Surgery Vascular Surgery
DX: I83.11 Varicose veins of right lower extremity with inflammation (principal)
CPT/HCPCS: 99203

== ENCOUNTER → 2024-03-01 14:14 | Outpatient (BNVA) | payer MEDICAID, SELFPAY | PROVIDERS: Visit Provider Surgery Vascular Surgery | DX: I83.11 Varicose veins of right lower extremity with inflammation (principal) | CPT/HCPCS: 99202 ==

== ENCOUNTER 2024-03-06 09:18 | Outpatient (AMB) | payer MEDICAID, SELFPAY ==
[2024-03-06 09:22] VITALS: BMI 40.8
--- NOTE | 2024-03-06 09:22 | MHC.OFFVIS ---
Vital Signs 03/06/24 09:22 Height 5 ft 4 in Weight 238 lb BMI 40.8 Intake Visit Reasons: PO RT CTR/RF trigger 02/20/24 AR Intake Note: Susy 63 yr old female presents today for her PO visit for her right hand CTR & RF trigger 02/20/24 AR. States locking of finger has resolved and only has very little numbness and tingling. Sutures removed and steri strips applied. States she wouldlike to move forward with trigger release for her left middle and ring finger. Allergies No Known Allergies [No Known Allergies*] Allergy (Verified 03/06/24 09:29) HPI HPI PO RT CTR/RF trigger 02/20/24 AR: Details: Susy is a 63 year old left hand dominant woman who returns S/P right carpal tunnel release & ring finger trigger release, DOS: 02/20/24. She says she is doing very well. Her sensation has improved, but not yet normal. She had good improvement in her overnight symptoms. She says her locking has resolved, which she is happy about. Regarding her left hand: She complains of new left ring finger, and perhaps the middle finger, locking & catching, and she would like to discuss surgery. She says her fingers lock primarily in the morning and are not as bad throughout the day. She continues to have numbness in the median nerve distribution, symptoms intermittent, but daily, worse at night PFSH Medical History HTN (hypertension) Surgical History H/O: hysterectomy Hx of colonoscopy Hx of cholecystectomy History of tubal ligation Family History Father HTN (hypertension) Mother HTN (hypertension) Brother Drug addict Social History Household Members Other:: Daughter Housing: Apartment Alcohol intake: never Comment: counts correct Patient Tobacco Use Status: Former Tobacco user Quit Date: 10 yrs ago Years Smoked: 8 service: No Current occupational status: unemployed and disabled Current occupation: left hand Sexual orientation: Straight/Heterosexual Gender identity: Female Review of Systems Const All systems reviewed & are unremarkable except as noted in HPI and below Physical Exam Vital Signs: BMI result Body Mass Index 40.8 Const General: no acute distress and alert Orientation/consciousness: patient oriented x3 Neuro General: patient oriented x3 Extrem Other: The patient was alert oriented and in no acute distress The incisions are healing well with no erythema drainage or evidence of infection. Sutures removed and Steri-Strips applied She can make a fist and extend all her digits No longer has any locking or catching Sensation is improved but not yet normal in the median nerve distribution. Still some numbness in the middle finger in particular. Cap refill is brisk In regards to the left hand: No locking or catching seen today Tender over the ring finger a1 sony Normal sensation to the tips of all digits today in clinic No thenar or intrinsic wasting. Nerve Conduction Study: IMPRESSION: 1. This is an abnormal study. 2. There is electrodiagnostic evidence for bilateral moderate-severe median neuropathy at the wrist, consistent with carpal tunnel syndrome. 3. 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 4. There is no electrodiagnostic evidence for ulnar neuropathy, brachial plexopathy, or cervical radiculopathy. Kassandra Campo MD, LUIS CARLOS 08/04/23 Psych Appearance: grossly normal Affect: normal affect Attitude: cooperative Assessment & Plan Assessment & Plan (1) Carpal tunnel syndrome of right wrist: Code(s): G56.01 - Carpal tunnel syndrome, right upper limb Category: Medical (2) Cubital tunnel syndrome on right: Code(s): G56.21 - Lesion of ulnar nerve, right upper limb Category: Medical (3) Carpal tunnel syndrome of left wrist: Code(s): G56.02 - Carpal tunnel syndrome, left upper limb Category: Medical (4) Trigger ring finger of right hand: Code(s): M65.341 - Trigger finger, right ring finger Category: Medical (5) Stenosing tenosynovitis of finger of left hand: Comment: MF & RF. Code(s): M65.842 - Other synovitis and tenosynovitis, left hand Category: Medical Plan Assessment & Plan: 1. Right carpal tunnel syndrome, S/P release DOS: 02/20/24 Pre-operative symptoms intermittent, but daily, worse at night Now with improved but not yet normal sensation 2. Right ring finger trigger finger, S/P release DOS: 02/20/24 The patient appears to be doing well post-operatively I educated her about the post-operative course I explained the signs and symptoms of infection, if the patient develops any new or worsening erythema, drainage, pain, or warmth they should contact the clinic or attend the ED. I discussed activity modifications, she is to lift nothing heavier than a cellphone for the next two weeks She will perform gentle ROM exercises at home She should avoid any underwater activities for the next 5 days She should gently massage about the incision site to reduce the risk of hypersensitivity She can follow up prn 3. Left carpal tunnel syndrome, moderate-severe Symptoms intermittent, but daily, worse at night 4. Left ring finger pre-trigger tenosynovitis 5. Left middle finger pre-trigger tenosynovitis I educated her about these conditions I discussed operative and non-operative treatment options The patient would like to proceed with surgery The risks and benefits of operative treatment were discussed with the patient and the patient wishes to proceed with surgery. These risks include, but are not limited to risk of damage to blood vessels, nerves, tendons, infection, recurrence, incomplete relief of preoperative symptoms, persistent pain, possible need for further surgery and the risks associated with regional blocks and anesthesia. The plan is to take the patient to the operating room sometime in the next few weeks for the following procedures: 1. Left carpal tunnel release, under local 2. Possible left ring finger trigger release, under local 3. Possible left middle finger trigger release, under local All of the preoperative paperwork including the consent was reviewed today. All the patient's questions were answered. The patient understands that they will be contacted by our activities concierge soon to schedule this procedure She denies Diabetes, blood thinners, asthma, heart, lung, kidney issues 5. Right cubital tunnel syndrome Symptoms intermittent & occasional I educated her about this condition If her symptoms increase in frequency or severity she can follow up to discuss surgery Scribed for Richa Landa MD by Stuart Masterson, medical insurance verifier, on 03/06/24 at 9:40 AM, EST. Coding Level of Care Code Est Pt Level 4 (71792) Diagnoses Carpal tunnel syndrome of right wrist G56.01 Cubital tunnel syndrome on right G56.21 Carpal tunnel syndrome of left wrist G56.02 Trigger ring finger of right hand M65.341 Stenosing tenosynovitis of finger of left hand M65.842
== END 2024-03-06 10:08 | disposition home or self-care (01) ==
PROVIDERS: Visit Provider Orthopaedic Surgery
DX: M65.342 Trigger finger, left ring finger (principal); M65.842 Other synovitis and tenosynovitis, left hand; G56.03 Carpal tunnel syndrome, bilateral upper limbs; G56.21 Lesion of ulnar nerve, right upper limb; M65.341 Trigger finger, right ring finger; M65.332 Trigger finger, left middle finger
CPT/HCPCS: 99214

== ENCOUNTER → 2024-03-06 09:18 | Outpatient (BNVA) | payer MEDICAID, SELFPAY | PROVIDERS: Visit Provider Orthopaedic Surgery | DX: Z47.89 Encounter for other orthopedic aftercare (principal); G56.21 Lesion of ulnar nerve, right upper limb; M65.341 Trigger finger, right ring finger; M65.842 Other synovitis and tenosynovitis, left hand; Z98.890 Other specified postprocedural states | CPT/HCPCS: 99212 ==

== ENCOUNTER 2024-03-15 12:42 | Outpatient (REF) | payer MEDICAID, SELFPAY ==
--- NOTE | ~2024-03-15 | US_ITS ---
EXAMINATION: US LOWER EXTREMITY VENOUS (REFLUX EXAM), BILATERAL CLINICAL INFORMATION: Varicose veins with inflammation COMPARISON: None. TECHNIQUE: Color flow triplex imaging and compression Doppler was performed to evaluate both the deep and the superficial systems bilaterally. To evaluate the superficial system, the examination was performed in the upright position. Color-flow Doppler ultrasound and compression ultrasound were utilized. In addition, maneuvers were utilized to demonstrate reflux. FINDINGS: 1. DEEP VENOUS ULTRASOUND OF THE RIGHT LOWER EXTREMITY: Common Femoral Vein: Compressible, normal respiratory variation and augmented flow. Femoral Vein: Compressible, normal color flow and augmentation. Popliteal Vein: Compressible, normal augmentation. Deep Reflux: There is deep reflux 1124ms in the right popliteal vein. There is no evidence of a Sandra's cyst. 2. SUPERFICIAL ULTRASOUND WITH DOPPLER OF RIGHT LOWER EXTREMITY: GREAT SAPHENOUS VEIN: Saphenofemoral Junction: 1.0 cm; Reflux: 2172 ms Proximal Thigh: 0.4 cm; Reflux: 1764 ms Mid Thigh: 0.7 cm; Reflux: 2492 ms Distal Thigh: 1.3 cm; Reflux: 3084 ms At Knee: 0.7 cm; Reflux: 2992 ms Proximal Calf: 0.5 cm; Reflux: 0 ms Mid Calf: 0.3 cm; Reflux: 2620 ms Distal Calf: 0.2 cm; Reflux: 2712 ms DUPLICATED MEDIAL GREAT SAPHENOUS VEIN: Diameter: None imaged Reflux: NA DUPLICATED LATERAL GREAT SAPHENOUS VEIN: Diameter: 1.0cm Reflux: 1824ms SMALL SAPHENOUS VEIN: Saphenopopliteal Junction: 0.1 cm; Reflux: 0 ms Proximal: 0.3 cm; Reflux: 0 ms Distal: 0.2 cm; Reflux: 1340 ms VEIN OF GIACOMINI: Size: NA Reflux: NA PERFORATORS: Location: Mid thigh and calf Size: 0.2-0.4cm Reflux: NA Location: Mid calf 22cm FH Size: 0.2cm Reflux: 2804ms VARICOSITIES: Location: Numerous calf SSV Size: 0.4-1.1cm Reflux: 0-3136ms 3. DEEP VENOUS ULTRASOUND OF THE LEFT LOWER EXTREMITY: Common Femoral Vein: Compressible, normal respiratory variation and augmented flow. Femoral Vein: Compressible, normal color flow and augmentation. Popliteal Vein: Compressible, normal augmentation. Deep Reflux: There is deep reflux 2808ms in the left common femoral vein. There is no evidence of a Sandra's cyst. 4. SUPERFICIAL ULTRASOUND WITH DOPPLER OF LEFT LOWER EXTREMITY: GREAT SAPHENOUS VEIN: Saphenofemoral Junction: 0.7 cm; Reflux: 0 ms Proximal Thigh: 0.3 cm; Reflux: 0 ms Mid Thigh: 0.4 cm; Reflux: 0 ms Distal Thigh: 0.4 cm; Reflux: 1356 ms At Knee: 0.4 cm; Reflux: 0 ms Proximal Calf: 0.3 cm; Reflux: 0 ms Mid Calf: 0.2 cm; Reflux: 0 ms Distal Calf: 0.3 cm; Reflux: 0 ms DUPLICATED MEDIAL GREAT SAPHENOUS VEIN: Diameter: 0.4cm Reflux: 0ms DUPLICATED LATERAL GREAT SAPHENOUS VEIN: Diameter: None imaged. Reflux: NA SMALL SAPHENOUS VEIN: Saphenopopliteal Junction: 0.2 cm; Reflux: 0 ms Proximal: 0.3 cm; Reflux: 0 ms Distal: 0.2 cm; Reflux: 0 ms VEIN OF GIACOMINI: Size: NA Reflux: NA PERFORATORS: Location: Multiple thigh and calf perforators Size: 0.1-0.4cm Reflux: NA VARICOSITIES: Location: Calf varicose veins Size: 0.3cm Reflux: NA US/US venous insuf bilat IMPRESSION: 1. Right: Severe reflux in the right great saphenous vein. Numerous right lower extremity varicose veins. 2. Left: Severe reflux in the left great saphenous vein in the distal thigh. Multiple thigh and calf perforators. Calf varicose veins. 3. Deep venous reflux in the right popliteal vein and left common femoral vein.
== END 2024-03-15 12:43 | disposition home or self-care (01) ==
LOC: HO.US 12:42
PROVIDERS: Visit Provider Surgery Vascular Surgery
DX: I83.11 Varicose veins of right lower extremity with inflammation (principal)
CPT/HCPCS: 93970

== ENCOUNTER 2024-04-10 14:18 | Outpatient (AMB) | payer MEDICAID, SELFPAY ==
--- NOTE | 2024-04-10 14:19 | A.OFFVIS_ITS ---
Vital Signs 04/10/24 14:21 Height 5 ft 4 in Weight 238 lb BMI 40.8 BP 138/78 Blood Pressure Location Rt brachial Position Sitting Intake Visit Reasons: f/u s/p US 03/15/24 Intake Note: patient presents for follow up. patient had ultrasound one here for resuts Allergies No Known Allergies [No Known Allergies*] Allergy (Verified 04/10/24 14:20) HPI HPI f/u s/p 03/15/24: Details: Very pleasant 63-year-old female presents for follow-up regarding venous insufficiency. She reports that it is right more so than left she has significant swelling of the leg and calf. Occasional discomfort. She reports that compression has provided minimal relief. She now presents for follow-up with venous insufficiency testing. [facility] Medical History HTN (hypertension) Surgical History H/O: hysterectomy Hx of colonoscopy Hx of cholecystectomy History of tubal ligation Family History Father HTN (hypertension) Mother HTN (hypertension) Brother Drug addict Social History Household Members Other:: Daughter Housing: Apartment Alcohol intake: never Comment: counts correct Patient Tobacco Use Status: Former Tobacco user Years Smoked: 8 service: No Current occupational status: unemployed and disabled Current occupation: left hand Sexual orientation: Straight/Heterosexual Gender identity: Female Review of Systems Const Reports as per HPI ENT Reports no additional complaints Card Denies chest pain, Denies chest pain at rest and Denies chest pain with activity Resp Denies chest congestion and Denies cough GI Reports no additional complaints Musc Details: pain over varicosities, aching of lower extremities, swelling, cramping, heaviness and tiredness, itching Denies abnormal gait Skin/Breast Reports pruritus and Denies wounds Neuro Reports no additional complaints and Denies abnormal gait Psych Denies no additional complaints Physical Exam Vital Signs: Last Vital Signs BP 138/78 04/10/24 14:21 BMI result Body Mass Index 40.8 Const General: cooperative, healthy appearing and comfortable Orientation/consciousness: oriented to person, oriented to place and oriented to time Neck Carotids: no bruits Chest Chest palpation & inspection: normal inspection of the chest and normal palpation of entire chest wall Resp Effort & Inspection: normal respiratory effort and able to speak in complete sentences Cardio Rate: regular rate Heart sounds: S1 normal heart sound present and S2 normal heart sound present Peripheral pulses: Peripheral pulses 2+ throughout GI Inspection: Yes normal to inspection Skin Other: +2 edema, large rope-like varicosities greater than 4 mm right calf and thigh CEAP Classification C4 - skin color changes Ep - Etiology Primary As - superficial veins P - reflux General skin exam: dry skin Neuro General: oriented to person, oriented to place and oriented to time Extrem Right lower extremity: full ROM, normal capillary refill and edema Left lower extremity: full ROM, normal capillary refill and edema Psych Mental Status: mental status grossly normal Results Reviewed Results Reviewed: Brief summary of venous insufficiency testing is as follows: right great saphenous vein: Positive right small saphenous vein: negative right accessory vein: none present left great saphenous vein: negative left small saphenous vein: negative left accessory vein: none present Please note there is no evidence of any venous aneurysms or significant tortuosity Assessment & Plan Assessment & Plan (1) Varicose veins of right lower extremity with inflammation: Code(s): I83.11 - Varicose veins of right lower extremity with inflammation Category: Medical Plan: This patient has varicose veins with inflammation. They continue to be a source of discomfort for the patient. The patient has tried conservative treatment with compression, leg elevation and exercise program for over 3 months time. They have been compliant with all treatment. This has provided minimal relief for the patient. I do not anticipate this course of treatment will alter the underlying etiology. The patient has been scheduled for lower extremity venous treatment inclusive of --- right great saphenous vein radiofrequency ablation. Risks, benefits, and complications of this procedure has been discussed in detail with the patient including but not limited to bleeding, infection, and the development of a DVT. The patient has demonstrated a clear understanding and has consented. We will schedule the patient as soon as possible. Thank you for allowing us to participate in this patient's care. If there are any questions or concerns please do not hesitate to contact us. Coding Level of Care Code Est Pt Level 4 (44417) Diagnoses Varicose veins of right lower extremity with inflammation I83.11
[2024-04-10 14:21] VITALS: BP 138/78; BMI 40.8
== END 2024-04-10 14:40 | disposition home or self-care (01) ==
PROVIDERS: Referring Provider Nurse Practitioner Family; Visit Provider Surgery Vascular Surgery
DX: I83.11 Varicose veins of right lower extremity with inflammation (principal)
CPT/HCPCS: 99214

== ENCOUNTER → 2024-04-10 14:18 | Outpatient (BNVA) | payer MEDICAID, SELFPAY | PROVIDERS: Visit Provider Surgery Vascular Surgery | DX: I83.11 Varicose veins of right lower extremity with inflammation (principal) | CPT/HCPCS: 99212 ==

== ENCOUNTER 2024-04-13 08:01 | Outpatient (AMB) | payer MEDICAID, SELFPAY ==
[2024-04-13 08:55] VITALS: BMI 40.8
--- NOTE | 2024-04-13 08:55 | MHC.OFFVIS ---
Vital Signs 04/13/24 08:55 Height 5 ft 4 in Weight 238 lb BMI 40.8 Intake Visit Reasons: Right GSV RFA Accompanied by: Self / Same As Patient Allergies No Known Allergies [No Known Allergies*] Allergy (Verified 04/13/24 08:57) PFSH Medical History HTN (hypertension) Surgical History H/O: hysterectomy Hx of colonoscopy Hx of cholecystectomy History of tubal ligation Family History Father HTN (hypertension) Mother HTN (hypertension) Brother Drug addict Social History Household Members Other:: Daughter Housing: Apartment Alcohol intake: never Comment: counts correct Patient Tobacco Use Status: Former Tobacco user Years Smoked: 8 service: No Current occupational status: unemployed and disabled Current occupation: left hand Sexual orientation: Straight/Heterosexual Gender identity: Female Physical Exam Vital Signs: BMI result Body Mass Index 40.8 Office Procedures Vascular Office Procedure Details Details: Diagnosis: Varicose veins with inflammation of right leg Procedure: Endovenous radiofrequency ablation of the right great saphenous vein(s) of the lower extremity. Anesthesia: Local infiltration 5 cc, Tumescent 400 cc. Estimated Blood Loss: minimal Specimen: Varicose veins The patient was transferred to the procedure suite and the insufficient saphenous vein was mapped by ultrasound and diagrammed on the overlying skin. The depth and diameter of the vein(s) to be treated was documented. The varicose tributary veins and suitable access sites were identified and mapped as well. The patient was then positioned supine on the procedure table. The affected limb was prepped and draped in the usual sterile fashion. The RF catheter was placed on the sterile field, flushed and wiped down, prepared, and connected by a sterile cable. The patient was placed in supine position and local anesthesia was instilled in the skin overlying the access site. A skin incision was made overlying the identified and mapped great saphenous vein entry site. The vein was accessed using ultrasound guidance and the Seldinger technique, a guide wire was introduced through the needle, which was then exchanged over the guide wire for a 6F sheath, which was secured in place. The guide wire was removed and the sheath was flushed. The RF catheter was placed into the vein through the sheath and preferentially, imaging was used to place the catheter tip just inferior to the superficial epigastric vein to preserve normal physiological flow in that vein. Additionally, it was confirmed by ultrasound guidance that the catheter tip was also placed a minimum of 1.5cm distal to the saphenofemoral junction. After the RF catheter position was verified by ultrasound, tumescent anesthesia was infiltrated, under ultrasound guidance, precisely into the perivenous compartment along the entire length of vein from the entry site to the saphenofemoral junction until a halo of fluid was noted around the vein. The patient was then placed in supine position to further exsanguinate the superficial venous system. After RF catheter position was again confirmed with ultrasound imaging, and under direct external compression along the length of the heating element, RF energy was applied. The vein was segmentally ablated by heating a 8 cm segment and then indexing the catheter forward by 7.5 cm until the treatment length is completed. Device temperature was maintained at 120 plus or minus 5 degrees C with an initial power level of 40W dropping to below 20W for each treatment. Total vein length treated 32 cm Total cycles of RF 6. Repeat ultrasound of the saphenous vein was performed, confirming successful treatment. The catheter and sheath were withdrawn and hemostasis established with direct pressure. After assuring hemostasis, the skin incision over the saphenous vein was closed with a bandage and a compression wrap, and/ or graduated compression stocking was applied from the level of the foot to the most proximal level of the thigh. 76469 - Endovenous RF, 1st Vein All charges added?: Procedure code (CPT) selection complete Assessment & Plan Assessment & Plan (1) Varicose veins of right lower extremity with inflammation: Comment: 04/13/2024 - right great saphenous vein radiofrequency ablation Code(s): I83.11 - Varicose veins of right lower extremity with inflammation Category: Medical Plan: See op note Coding Level of Care Code Procedure Only Diagnoses Varicose veins of right lower extremity with inflammation I83.11 CPT Codes Details - Vascular 1: 47318 - Endovenous RF, 1st Vein ([id number])
== END 2024-04-13 11:02 | disposition home or self-care (01) ==
PROVIDERS: Visit Provider Surgery Vascular Surgery
DX: I83.11 Varicose veins of right lower extremity with inflammation (principal)
CPT/HCPCS: 36475

== ENCOUNTER → 2024-04-13 08:01 | Outpatient (BNVA) | payer MEDICAID, SELFPAY | PROVIDERS: Visit Provider Surgery Vascular Surgery | DX: I83.11 Varicose veins of right lower extremity with inflammation (principal) | CPT/HCPCS: 36475 ==

== ENCOUNTER 2024-04-16 14:43 | Outpatient (REF) | payer MEDICAID, SELFPAY ==
--- NOTE | ~2024-04-16 | US_ITS ---
EXAMINATION: TRIPLEX SCANNING OF RIGHT LOWER EXTREMITY; SUPERFICIAL ULTRASOUND WITH DOPPLER OF RIGHT LOWER EXTREMITY CLINICAL INFORMATION: Status post RF ablation of the right great saphenous vein. Originally performed on 04/13/2024. COMPARISON: Bilateral venous reflux study dated 03/15/2024. TECHNIQUE: Color flow triplex imaging and compression Doppler were performed as well as superficial ultrasound with Doppler. FINDINGS: TRIPLEX SCANNING OF RIGHT LOWER EXTREMITY: Respiratory variation, normal compression and augmented flow are noted throughout the lower extremity. The visualized common femoral vein, femoral vein, profunda femoral vein, popliteal vein and the calf veins show no evidence of deep venous thrombosis. SUPERFICIAL ULTRASOUND WITH DOPPLER OF RIGHT LOWER EXTREMITY: The right great saphenous vein is occluded from the access site to just before the sapheno-femoral junction. There is no extension of thrombus into the deep system. There is no evidence of Sandra's cyst. US/US venous duplex LE RT IMPRESSION: 1. Normal triplex scan of the right without evidence of deep venous thrombosis. 2. Excellent appearance status post ablation of the right great saphenous vein.
== END 2024-04-16 14:44 | disposition home or self-care (01) ==
LOC: HO.US 14:43
PROVIDERS: Visit Provider Surgery Vascular Surgery
DX: M79.604 Pain in right leg (principal)
CPT/HCPCS: 93971

== ENCOUNTER 2024-04-18 12:11 | Outpatient (AMB) | payer MEDICAID, SELFPAY ==
--- NOTE | 2024-04-18 12:16 | MHC.OFFVIS ---
Vital Signs 04/18/24 12:19 Height 5 ft 4 in Weight 238 lb BMI 40.8 Handedness Left Intake Visit Reasons: PO LT CTR, RF trigger, MF trigger 04/05/24 AR Intake Note: Susy is a 63 year old left hand dominant female who presents today for a post op appointment s/p left CTR, RF trigger, MF trigger 04/05/24 AR. Patient reports she is doing a bit better, however she is having complaints about having some tightness in her wrist. Allergies No Known Allergies [No Known Allergies*] Allergy (Verified 04/18/24 12:18) HPI HPI PO LT CTR, RF trigger, MF trigger 04/05/24 AR: Details: Susy is a 63 year old left hand dominant woman who returns S/P right carpal tunnel release & ring finger trigger release, DOS: 02/20/24. She says she is doing very well. Her sensation has improved, but is still not yet normal. She had good improvement in her overnight symptoms. She says her locking has resolved, which she is happy about. She complains of tightness in her wrist Regarding her left hand: She complains of left ring finger, and perhaps the middle finger, locking & catching. She says her fingers lock primarily in the morning and are not as bad throughout the day. She continues to have numbness in the median nerve distribution, symptoms intermittent, but daily, worse at night. She was scheduled for surgery last month but this was cancelled as she was sick. [facility] Medical History HTN (hypertension) Surgical History H/O: hysterectomy Hx of colonoscopy Hx of cholecystectomy History of tubal ligation Family History Father HTN (hypertension) Mother HTN (hypertension) Brother Drug addict Social History Household Members Other:: Daughter Housing: Apartment Alcohol intake: never Comment: counts correct Patient Tobacco Use Status: Former Tobacco user Years Smoked: 8 service: No Current occupational status: unemployed and disabled Current occupation: left hand Sexual orientation: Straight/Heterosexual Gender identity: Female Physical Exam Vital Signs: BMI result Body Mass Index 40.8 Const General: no acute distress and alert Orientation/consciousness: patient oriented x3 Neuro General: patient oriented x3 Extrem Other: The patient was alert oriented and in no acute distress The incisions are well-healed. She can make a fist and extend all her digits No longer has any locking or catching Sensation is improved but not yet normal in the right median nerve distribution. Still some numbness in the middle finger in particular. Cap refill is brisk In regards to the left hand: No locking or catching seen today Tender over the ring finger a1 sony Normal sensation to the tips of all digits today in clinic No thenar or intrinsic wasting. Nerve Conduction Study: IMPRESSION: 1. This is an abnormal study. 2. There is electrodiagnostic evidence for bilateral moderate-severe median neuropathy at the wrist, consistent with carpal tunnel syndrome. 3. 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 4. There is no electrodiagnostic evidence for ulnar neuropathy, brachial plexopathy, or cervical radiculopathy. Kassandra Campo MD, [facility] ACRLOS 08/04/23 Psych Appearance: grossly normal Affect: normal affect Attitude: cooperative Assessment & Plan Assessment & Plan (1) Carpal tunnel syndrome of right wrist: Code(s): G56.01 - Carpal tunnel syndrome, right upper limb Category: Medical (2) Cubital tunnel syndrome on right: Code(s): G56.21 - Lesion of ulnar nerve, right upper limb Category: Medical (3) Carpal tunnel syndrome of left wrist: Code(s): G56.02 - Carpal tunnel syndrome, left upper limb Category: Medical (4) Trigger ring finger of right hand: Code(s): M65.341 - Trigger finger, right ring finger Category: Medical (5) Stenosing tenosynovitis of finger of left hand: Comment: MF & RF. Code(s): M65.842 - Other synovitis and tenosynovitis, left hand Category: Medical Plan Assessment & Plan: 1. Right carpal tunnel syndrome, S/P release DOS: 02/20/24 Pre-operatively with dense numbness Now with improved but not yet normal sensation 2. Right ring finger trigger finger, S/P release DOS: 02/20/24 Doing well 3. Left carpal tunnel syndrome, moderate-severe Symptoms intermittent, but daily, worse at night 4. Left ring finger pre-trigger tenosynovitis 5. Left middle finger pre-trigger tenosynovitis I educated her about these conditions I discussed operative and non-operative treatment options The patient would like to proceed with surgery. She was initially scheduled for surgery on 03/21/24 but this was cancelled as she was sick. The risks and benefits of operative treatment were discussed with the patient and the patient wishes to proceed with surgery. These risks include, but are not limited to risk of damage to blood vessels, nerves, tendons, infection, recurrence, incomplete relief of preoperative symptoms, persistent pain, possible need for further surgery and the risks associated with regional blocks and anesthesia. The plan is to take the patient to the operating room sometime in the next few monthsfor the following procedures: 1. Left carpal tunnel release, under local 2. Possible left ring finger trigger release, under local 3. Possible left middle finger trigger release, under local All of the preoperative paperwork including the consent was reviewed today. All the patient's questions were answered. The patient understands that they will be contacted by our survival equipment repairer soon to schedule this procedure. She would like to have this done sometime in June She denies Diabetes, blood thinners, asthma, heart, lung, kidney issues 5. Right cubital tunnel syndrome Symptoms intermittent & occasional I educated her about this condition If her symptoms increase in frequency or severity she can follow up to discuss surgery Scribed for Richa Landa MD by Stuart Masterson, director biomedical engineering, on 04/18/24 at 12:20 PM, EST. Coding Level of Care Code Est Pt Level 4 (72347) Diagnoses Carpal tunnel syndrome of right wrist G56.01 Cubital tunnel syndrome on right G56.21 Carpal tunnel syndrome of left wrist G56.02 Trigger ring finger of right hand M65.341 Stenosing tenosynovitis of finger of left hand M65.842
[2024-04-18 12:19] VITALS: BMI 40.8
== END 2024-04-18 12:29 | disposition home or self-care (01) ==
PROVIDERS: Visit Provider Orthopaedic Surgery
DX: G56.03 Carpal tunnel syndrome, bilateral upper limbs (principal); G56.21 Lesion of ulnar nerve, right upper limb; M65.341 Trigger finger, right ring finger; M65.842 Other synovitis and tenosynovitis, left hand
CPT/HCPCS: 99214

== ENCOUNTER → 2024-04-18 12:11 | Outpatient (BNVA) | payer MEDICAID, SELFPAY | PROVIDERS: Visit Provider Orthopaedic Surgery | DX: G56.02 Carpal tunnel syndrome, left upper limb (principal); M65.341 Trigger finger, right ring finger; M65.842 Other synovitis and tenosynovitis, left hand; Z86.69 Personal history of other diseases of the nervous system and sense organs | CPT/HCPCS: 99212 ==

== ENCOUNTER 2024-05-01 14:06 | Outpatient (AMB) | payer MEDICAID, SELFPAY ==
--- NOTE | 2024-05-01 14:12 | MHC.OFFVIS ---
Intake Visit Reasons: 2w follow up s/p Right GSV RFA Intake Note: Patient presents for 2 week follow up for right GSV RFA. She states she is experiencing soreness in right thigh. Allergies No Known Allergies [No Known Allergies*] Allergy (Verified 05/01/24 14:13) HPI HPI 2w follow up s/p Right GSV RFA: Details: Very pleasant 63-year-old female presents for follow-up status post right great saphenous vein radiofrequency ablation. She reports no postprocedure difficulties. Overall swelling and discomfort have significantly improved. Of note postprocedure ultrasound was negative for DVT. PFSH Medical History HTN (hypertension) Surgical History H/O: hysterectomy Hx of colonoscopy Hx of cholecystectomy History of tubal ligation Family History Father HTN (hypertension) Mother HTN (hypertension) Brother Drug addict Social History Household Members Other:: Daughter Housing: Apartment Alcohol intake: never Comment: counts correct Patient Tobacco Use Status: Former Tobacco user Years Smoked: 8 service: No Current occupational status: unemployed and disabled Current occupation: left hand Sexual orientation: Straight/Heterosexual Gender identity: Female Review of Systems Const All systems reviewed & are unremarkable except as noted in HPI and below Reports no additional complaints ENT Reports Normal hearing present Card Denies chest pain, Denies chest pain at rest, Denies chest pain with activity and Denies pedal edema Resp Denies cough GI Denies abdominal pain Musc Denies abnormal gait, Denies muscle cramps and Denies radiating pain into limb Skin/Breast Denies skin ulcer and Denies wounds Neuro Reports Normal hearing present and Denies abnormal gait Psych Reports no additional complaints Physical Exam Const General: cooperative, healthy appearing and comfortable Orientation/consciousness: oriented to person, oriented to place and oriented to time HEENT Head: Yes normal to inspection Neck Neck: Yes normal visual inspection Carotids: no bruits Chest Chest palpation & inspection: normal inspection of the chest Resp Effort & Inspection: normal respiratory effort and able to speak in complete sentences Auscultation: clear to auscultation bilaterally, no crackles, no rales, no rhonchi and no wheezes Cardio Rate: regular rate Rhythm: regular rhythm Heart sounds: S1 normal heart sound present and S2 normal heart sound present Bruits: no carotid bruits Peripheral pulses: Peripheral pulses 2+ throughout GI Inspection: Yes normal to inspection Skin Wounds: no wounds Hair: normal Neuro General: oriented to person, oriented to place and oriented to time Cranial nerves: Yes CN's II-XII intact bilaterally and Yes Normal hearing present Cognition (Neuro): normal cognition Motor exam (neuro): 5/5 motor strength present throughout Extrem Other: venous exam: No significant superficial varicosities or spider telangiectasias, minimal edema General: No clubbing, No cyanosis and No edema Psych Appearance: grossly normal Mental Status: mental status grossly normal Speech and movement: Normal speech and movement present Assessment & Plan Assessment & Plan (1) Varicose veins of right lower extremity with inflammation: Comment: 04/13/2024 - right great saphenous vein radiofrequency ablation Code(s): I83.11 - Varicose veins of right lower extremity with inflammation Category: Medical Plan: The patient has done extremely well with all venous treatments. Patient's may often experience postprocedure phlebitic episodes and I have discussed with the patient use of warm compresses and NSAIDS if tolerated for pain discomfort. In addition, I have discussed continued conservative measures including use of compression, leg elevation, and exercise. The patient was also given an information sheet regarding appropriate use of compression stockings and future purchases. Thank you for allowing us to care for your patient with venous disease. Coding Level of Care Code Est Pt Level 3 (01539) Diagnoses Varicose veins of right lower extremity with inflammation I83.11
== END 2024-05-01 14:41 | disposition home or self-care (01) ==
PROVIDERS: Referring Provider Nurse Practitioner Family; Visit Provider Surgery Vascular Surgery
DX: I83.11 Varicose veins of right lower extremity with inflammation (principal)
CPT/HCPCS: 99213

== ENCOUNTER → 2024-05-01 14:06 | Outpatient (BNVA) | payer MEDICAID, SELFPAY | PROVIDERS: Visit Provider Surgery Vascular Surgery | DX: I83.11 Varicose veins of right lower extremity with inflammation (principal) | CPT/HCPCS: 99212 ==